=== PATIENT | male | born 1995 | race Two or more races ===

== ENCOUNTER 2020-04-12 21:31 | Emergency (ER) | payer SELFPAY ==
[2020-04-12] MEDS ORDERED: Tamsulosin 0.4 MG Cap.ER PO STA (21:43)
[2020-04-12] MEDS ORDERED: Ondansetron 4 MG/2 ML SDV IVPUSH ONE (21:43)
[2020-04-12] MEDS ORDERED: HYDROmorphone 1 MG/ML Syringe IVPUSH STA (21:43)
[2020-04-12] MEDS ORDERED: Sodium Chloride 0.9% 1,000 ML IV ONE (21:44)
--- NOTE | 2020-04-12 21:58 | EDM.PDOC ---
ED HPI GENERAL MEDICAL PROBLEM - General Chief Complaint: Flank Pain Stated Complaint: CHEST PAIN Time Seen by Provider: 04/12/20 21:43 Source of Information: Reports: Patient, Other (friend) History Limitations: Reports: Language Barrier (Pt is primarily upper sorbian speaking, but the friend present in the room is fluent in indonesian and translates well.) - History of Present Illness INITIAL COMMENTS - FREE TEXT/NARRATIVE: Patient is a 24-year-old male who is brought into the ED by his friend today for the evaluation of sudden onset right flank pain. The patient notes that the p ain started rather abruptly roughly 1 hour ago, patient notes that he feels nauseated, and has had a few episodes of vomiting, he feels like he needs to urinate, but has no dysuria, or any sort of frequency. He further denies any sort of diarrhea/fever/chills, cough/shortness of breath, he was not known to be sick prior to these symptoms starting. Friend notes that he did not have any sort of fall or trauma to the area, patient notes that it is very painful, and characterizes it somewhat as a cramp. He did not take any sort of pain medication for this. He denies any abdominal surgeries, and he denies any sort of allergies that he has. He is not known to have any history of kidney stones. Right Flank Pain Score (Numeric/FACES): 10 - Related Data Allergies Allergy/AdvReac Type Severity Reaction Status Date / Time No Known Allergies Allergy Verified 04/12/20 21:42 Home Meds: Home Meds Acetaminophen/HYDROcodone [[place] 325-5 MG] 1 tab PO Q6H PRN #12 tablet 04/12/20 [Rx] Tamsulosin [Tamsulosin 24 Hr] 0.4 mg PO DAILY #2 cap.er 04/12/20 [Rx] Social & Family History - Tobacco Use Smoking Status *Q: Current Some Day Smoker Years of Tobacco use: 4 Packs/Tins Daily: 0.1 - Caffeine Use Caffeine Use: Reports: None - Recreational Drug Use Recreational Drug Use: No ED ROS GENERAL - Review of Systems Review Of Systems: Comprehensive ROS is negative, except as noted in HPI. ED EXAM, RENAL/ - Physical Exam Exam: See Below Exam Limited By: No Limitations General Appearance: Alert, WD/WN, No Apparent Distress (pt appears to be in pain, but in no obvious distress) Respiratory/Chest: No Respiratory Distress, Lungs Clear, Normal Breath Sounds, No Accessory Muscle Use, Chest Non-Tender Cardiovascular: Normal Peripheral Pulses, Regular Rate, Rhythm, No Murmur GI/Abdominal: Normal Bowel Sounds, Soft, Non-Tender, No Distention, No Mass Extremities: Normal Inspection, Normal Capillary Refill Neurological: Alert, Oriented, Normal Cognition, No Motor/Sensory Deficits Psychiatric: Normal Affect, Normal Mood Skin Exam: Warm, Dry, Intact, Normal Color, No Rash Course - Vital Signs Last Recorded V/S: Last Vital Signs Temp 98.1 F 04/12/20 21:39 Pulse 68 04/12/20 21:39 Resp 18 04/12/20 21:39 BP 164/86 H 04/12/20 21:39 Pulse Ox 98 04/12/20 21:39 - Orders/Labs/Meds Orders: Active Orders 24 hr Category Date Time Status Strain Urine [RC] ASDIRECTED Care 04/12/20 21:43 Ordered Labs: Laboratory Tests 04/12/20 Range/Units 22:30 Urine Color Yellow (Yellow) Urine Appearance Clear (Clear) Urine pH 6.0 (5.0-8.0) Ur Specific [place] 1.025 (1.005-1.030) Urine Protein Negative (Negative) Urine Glucose (UA) Negative (Negative) Urine Ketones Negative (Negative) Urine Occult Blood Trace-intact H (Negative) Urine Nitrite Negative (Negative) Urine Bilirubin Negative (Negative) Urine Urobilinogen 0.2 (0.2-1.0) Ur Leukocyte Esterase Negative (Negative) Urine RBC 5-10 H (0-5) /hpf Urine WBC 0-5 (0-5) /hpf Ur Squamous Epith Cells 0-5 (0-5) /hpf Urine Bacteria Few (FEW) /hpf Urine Mucus Moderate H (FEW) /hpf Meds: Medications Discontinued Medications Generic Name Dose Route Start Last Admin Trade Name Freq PRN Reason Stop Dose Admin Hydromorphone HCl 1 mg 04/12/20 21:43 04/12/20 21:56 Dilaudid IVPUSH 04/12/20 21:44 1 mg ONETIME STA Administration Sodium Chloride 1,000 mls @ 999 mls/hr 04/12/20 21:44 04/12/20 21:56 Normal Saline IV 04/12/20 22:44 999 mls/hr ASDIRECTED ONE Administration Ketorolac Tromethamine 30 mg 04/12/20 22:31 04/12/20 22:40 Toradol IVPUSH 04/12/20 22:32 30 mg ONETIME ONE Administration Ondansetron HCl 4 mg 04/12/20 21:43 04/12/20 21:56 Zofran IVPUSH 04/12/20 21:44 4 mg ONETIME ONE Administration Tamsulosin HCl 0.4 mg 04/12/20 21:43 Flomax PO 04/12/20 21:44 ONETIME STA Tamsulosin HCl 0.4 mg 04/12/20 22:28 04/12/20 22:40 Flomax PO 04/12/20 22:29 0.4 mg ONETIME ONE Administration - Re-Assessments/Exams Free Text/Narrative Re-Assessment/Exam: 04/12/20 21:58 Patient presents to the ED for the evaluation of his sudden onset right flank pain. Clinical course and exam/history are suspicious for kidney stone, patient will have an abdomen pelvis CT without contrast, urinalysis, IV fluids, pain medication and nausea medication for initial management. 04/12/20 22:15 Patient received good symptomatic relief with the Dilaudid given to him. CT has been performed, and does appear to have a kidney stone, but it appears that it has either dropped into the bladder or is at the UVJ. He does also have another stone within his left kidney. Official radiology read is still pending at this time. 04/12/20 22:30 There is a 3 mm stone noted within the right UVJ, and another 5 mm stone within the patient's left kidney. Patient will be given 1 dose of tamsulosin at this time. Nursing reports that the patient is now having a little bit more pain again. We will give IV Toradol for further management. Departure - Departure Time of Disposition: 23:02 Disposition: Home, Self-Care 01 Condition: Good Clinical Impression: Kidney stone on right side - Discharge Information *PRESCRIPTION DRUG MONITORING PROGRAM REVIEWED*: Yes *COPY OF PRESCRIPTION DRUG MONITORING REPORT IN PATIENT [place]: No Prescriptions: Tamsulosin [Tamsulosin 24 Hr] 0.4 mg PO DAILY #2 cap.er Acetaminophen/HYDROcodone [[place] 325-5 MG] 1 tab PO Q6H PRN #12 tablet PRN Reason: Pain Instructions: Dietary Guidelines to Help Prevent Kidney Stones, Kidney Stones, [id number] Referrals: PCP,None [Primary Care Provider] - Forms: ED Department Discharge Additional Instructions: You were evaluated in the ER today for your right flank pain. Your urinalysis did demonstrate some blood in urine, which is suggestive of a kidney stone at this time. A CT was done at this ER visit, this demonstrated a 3mm stone within your right UVJ, which is close to passing into your bladder. You have been given a strainer, please use every time you use the bathroom to make sure that the kidney stone has passed. Recommend that you increase your oral fluid intake to try to help the stone pass. You have been given a few tablets of pain medication, please take as prescribed. These medications are highly addictive, please take as few as you need to. These medications also may cause constipation, please take a stool softener like MiraLAX while taking these medications. You were also given 2 tablets of Flomax, please take 1 tab daily, to try to help the stone pass into the bladder. If your pain is not much better in a week's time, you may need to follow up with your primary care physician, for a possible urology referral. Please return to the ED if your symptoms change or worsen. Sepsis Event Note (ED) - Evaluation Sepsis Screening Result: No Definite Risk - Focused Exam Vital Signs: Vital Signs Temp Pulse Resp BP Pulse Ox 04/12/20 21:39 98.1 F 68 18 164/86 H 98 - My Orders Last 24 Hours: My Active Orders 04/12/20 21:43 Strain Urine [RC] ASDIRECTED - Assessment/Plan Last 24 Hours: My Active Orders 04/12/20 21:43 Strain Urine [RC] ASDIRECTED
--- NOTE | 2020-04-12 22:27 | CT ---
CT abdomen and pelvis Technique: Multiple axial sections were obtained from above the dome of the diaphragm inferiorly through the pubic symphysis. Intravenous and oral contrast was not utilized. Study has been performed as a ureteral stone protocol. Findings: Right ureter is mildly prominent. This finding is caused by an obstructing stone located within the UVJ measuring about 3 mm. No additional ureteral calculi are seen. Small nonobstructing stone is noted within the mid left kidney measuring less than 5 mm. Fatty infiltration is noted within the liver. Visualized lung bases show nothing acute. Spleen size is normal. Adrenal glands show no nodule. No discrete abnormality is appreciated within the pancreas. Gallbladder contains no calcified gallstones. Aorta shows no aneurysm. No retroperitoneal adenopathy or mesenteric abnormalities are seen. Appendix is seen which is normal in size. No pelvic mass or adenopathy is noted. No free fluid or inflammatory change is seen. 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 Small fat-containing umbilical hernia is noted. Impression: 1. Mildly prominent right ureter with small 3 mm obstructing stone located within the right UVJ. 2. Nonobstructing stone is noted within the mid left kidney measuring less than 5 mm. 3. Other findings as noted above which are nonacute. Diagnostic code #3 This report was dictated in MDT
[2020-04-12] MEDS ORDERED: Tamsulosin 0.4 MG Cap.ER PO ONE (22:28)
[2020-04-12] MEDS ORDERED: Ketorolac 30 MG/ML SDV IVPUSH ONE (22:31)
[2020-04-12] MEDS ORDERED: Acetaminophen/HYDROcodone 325-5 MG Tab PO ONE (23:20)
== END 2020-04-12 23:15 | disposition home or self-care (01) ==
LOC: JD.ED 21:31
DX: N20.2 Calculus of kidney with calculus of ureter (principal); F17.210 Nicotine dependence, cigarettes, uncomplicated
CPT/HCPCS: 74176; 81001; 96361; 96374; 96375; 99284; A9270; J1170; J1885; J2405; J7030; 99283